=== PATIENT | female | born 1965 | race Caucasian/White ===

== ENCOUNTER → 2021-07-21 | Day surgery (SDC) | payer OTHER ==
[~2021-07-21] VITALS: Ht 165.1 cm; Wt 85.3 kg
[~2021-07-21] MED LIST: FOLIC ACID1 MG PO; IBUPROFEN800 MG PO; ZYRTEC10 M3 PO
[2021-07-21 07:26] LABS: HCT 41.5 % (37.0-47.0); HGB 13.9 g/dl (12.5-16.0); MCH 30.2 pg (25.0-31.0); MCHC 33.5 g/dL (32.0-36.0); MPV 10.3 fL (6.0-9.5); RBC 4.61 M/uL (4.20-5.40); RDW 12.9 % (11.5-14.0); WBC 6.8 K/uL (4.0-10.5)
== END | disposition home or self-care (01) ==
LOC: FAS 07-07 07:00
PROVIDERS: Specialist
DX: N88.8 Other specified noninflammatory disorders of cervix uteri (principal); N87.9 Dysplasia of cervix uteri, unspecified; Z98.51 Tubal ligation status; F17.210 Nicotine dependence, cigarettes, uncomplicated
CPT/HCPCS: 36415; 93005; J0690; J1100; J1170; J1885; J2250; J2405; J2704; J7120